=== PATIENT | female | born 1975 | race Caucasian/White ===

== ENCOUNTER 2019-05-05 08:53 | Emergency (ER) | payer BC ==
[~2019-05-05] VITALS: Ht 157.5 cm; Wt 125.0 kg
--- NOTE | 2019-05-05 11:03 | REP ---
RIGHT KNEE, FIVE VIEWS: Five views of the right knee performed. There is no acute fracture or dislocation. There is moderate diffuse joint space narrowing with subchondral sclerosis and spurring. IMPRESSION: Moderate diffuse degenerative changes. No fracture or dislocation. Electronically Signed by Pepito Carballo MD 05/05/2019 04:21 P
--- NOTE | 2019-05-05 11:36 | REP ---
Duplex extremity venous ultrasound: Right lower extremity. History: Rule out DVT. Findings: The deep veins are anechoic and fully compressible from the groin to the popliteal fossa in the right lower extremity. Color flow imaging is homogeneous. Spectral Doppler interrogation demonstrates intact respiratory variation in flow and normal manual augmentation of flow. There is no evidence of deep vein thrombosis. Impression: Negative right lower extremity duplex venous ultrasound. No evidence of deep vein thrombosis. Electronically Signed by Omari Carey MD 05/05/2019 11:27 A
[2019-05-05 11:55] VITALS: BP 143/84
== END 2019-05-05 12:25 | disposition home or self-care (01) ==
LOC: M ED 08:53
DX: M25.561 Pain in right knee (principal); M17.11 Unilateral primary osteoarthritis, right knee; Z79.899 Other long term (current) drug therapy